=== PATIENT | female | born 1970 | race Caucasian/White ===

== ENCOUNTER 2017-05-04 11:38 | Emergency (ER) | payer BC ==
[~2017-05-04] VITALS: Ht 160 cm; Wt 59.1 kg
[2017-05-04 11:45] VITALS: TEMP 98.4
[2017-05-04] MEDS ORDERED: NEURONTIN300 MG/CAP PO (11:50)
[2017-05-04] MEDS ORDERED: CEPHALEXIN500 M1 PO (11:51)
[2017-05-04] MEDS ORDERED: XANAX .25M0.25 MG/TA PO (11:51)
[2017-05-04] MEDS ORDERED: DOXYCYCLINE HY100 MG PO (13:31)
[2017-05-04 13:44] VITALS: BP 119/59; PULSE 62
== END 2017-05-04 13:45 | disposition home or self-care (01) ==
LOC: COL.ER 11:38
DX: L27.1 Localized skin eruption due to drugs and medicaments taken internally (principal); T36.1X5A Adverse effect of cephalosporins and other beta-lactam antibiotics, initial encounter; L03.211 Cellulitis of face; G35 Multiple sclerosis
CPT/HCPCS: J1200; J2930; J7030

== ENCOUNTER → 2017-06-27 | Outpatient (CLI) | payer BC ==
[~2017-06-27] MED LIST: CEPHALEXIN500 M1 PO; DOXYCYCLINE HY100 MG PO; NEURONTIN300 MG/CAP PO; XANAX .25M0.25 MG/TA PO
== END ==
LOC: MC.RAD 06-24 15:20
DX: Z12.31 Encounter for screening mammogram for malignant neoplasm of breast (principal)

== ENCOUNTER 2017-10-21 15:52 | Emergency (ER) | payer BC ==
[~2017-10-21] VITALS: Ht 162.6 cm; Wt 61.4 kg
[2017-10-21 15:57] VITALS: BP 159/85; PULSE 73; TEMP 98.4
[2017-10-21] MEDS ORDERED: [UNRECOGNIZED DRUG - OTHER] SQ (16:02)
[2017-10-21] MEDS ORDERED: SINGULAIR 110 MG/TAB PO (16:28)
[2017-10-21] MEDS ORDERED: ZYRTEC 10MG10 MG PO (16:29)
[2017-10-21] MEDS ORDERED: DOXYCYCLINE 10100 MG PO (16:49)
== END 2017-10-21 16:56 | disposition home or self-care (01) ==
LOC: COL.ER 15:52
DX: R21 Rash and other nonspecific skin eruption (principal)

== ENCOUNTER → 2018-08-04 | Outpatient (CLI) | payer BC ==
[~2018-08-04] MED LIST changes: +DOXYCYCLINE 10100 MG PO; +SINGULAIR 110 MG/TAB PO; +ZYRTEC 10MG10 MG PO; +[UNRECOGNIZED DRUG - OTHER] SQ
== END ==
LOC: MC.RAD 15:48
DX: Z12.31 Encounter for screening mammogram for malignant neoplasm of breast (principal)

== ENCOUNTER → 2019-11-11 | Outpatient (CLI) | payer BC | LOC: MC.RAD 15:42 | DX: Z12.31 Encounter for screening mammogram for malignant neoplasm of breast (principal); N63.20 Unspecified lump in the left breast, unspecified quadrant ==

== ENCOUNTER → 2019-11-17 | Outpatient (CLI) | payer BC | LOC: MC.RAD 14:30 | DX: N60.12 Diffuse cystic mastopathy of left breast (principal) ==

== ENCOUNTER → 2020-05-17 | Outpatient (CLI) | payer BC | LOC: MC.RAD 10:26 | DX: N64.9 Disorder of breast, unspecified (principal) ==

== ENCOUNTER → 2020-12-12 | Outpatient (CLI) | payer BC | LOC: MC.RAD 16:00 | DX: Z12.31 Encounter for screening mammogram for malignant neoplasm of breast (principal) ==

== ENCOUNTER → 2020-12-19 | Outpatient (CLI) | payer BC | LOC: MC.RAD 14:00 | DX: N64.89 Other specified disorders of breast (principal) ==

== ENCOUNTER → 2022-04-09 | Outpatient (CLI) | payer BC | LOC: MC.RAD 15:37 | DX: Z12.31 Encounter for screening mammogram for malignant neoplasm of breast (principal); N64.9 Disorder of breast, unspecified ==

== ENCOUNTER → 2022-04-19 | Outpatient (CLI) | payer BC | LOC: MC.RAD 07:00 | DX: N60.02 Solitary cyst of left breast (principal) ==

== ENCOUNTER 2022-12-11 07:08 | Day surgery (SDC) | payer BC ==
[~2022-12-11] VITALS: Ht 160 cm; Wt 69.3 kg
[~2022-12-11 07:08] MED LIST changes: -ZYRTEC 10MG10 MG PO; +ZYRTEC-D 5 MG-11 TER PO
[2022-12-11 07:30] VITALS: BP 128/93; PULSE 77; TEMP 97.5
[2022-12-11] MEDS ORDERED: ESTRACE 1MG1 MG/TAB PO (07:33)
[2022-12-11] MEDS ORDERED: PROVERA5 MG PO (07:34)
[2022-12-11 08:35] VITALS: BP 129/83; PULSE 80; TEMP 97.5
--- NOTE | 2022-12-11 08:35 | NUR ---
0835 PATIENT RETURNS TO ROOM 2 VIA CART. PATIENT IS ALERT, BUT DROWSY. PATIENT WAS ASSISTED BACK TO RECLINER WITH ASSISTANCE FROM NURSES. RESPIRATIONS EVEN AND UNLABORED. PATIENT IS IN ROOM. VITAL SIGNS OBTAINED. PATIENT REQUESTED WATER. CALL LIGHT WITHIN REACH. 0840 WATER GIVEN TO PATIENT. NO DIFFICULTIES SWALLOWING. 0850 THIS NURSE REVIEWED DISCHARGE INSTRUCTIONS WITH PATIENT AND PATIENT . BOTH VERBALIZED UNDERSTANDING. 0855 THIS NURSE DC IV FROM RIGHT HAND WITH NO DIFFICULTIES. 0857 DOCTOR IN TO SPEAK WITH PATIENT AND PATIENT . 0900 PATIENT DRESSES SELF INDEPENDENTLY. 0905 PATIENT DC FROM DEPARTMENT VIA WHEELCHAIR.
[2022-12-11 08:50] VITALS: BP 117/83; PULSE 76
[2022-12-11 08:55] VITALS: BP 126/83; PULSE 71
== END 2022-12-11 09:05 | disposition home or self-care (01) ==
LOC: SDCO 07:08
DX: Z12.11 Encounter for screening for malignant neoplasm of colon (principal); K63.5 Polyp of colon; K57.30 Diverticulosis of large intestine without perforation or abscess without bleeding
CPT/HCPCS: J2704; J3010; J7120

== ENCOUNTER → 2023-08-13 | Outpatient (CLI) | payer BC ==
[~2023-08-13] MED LIST changes: +ESTRACE 1MG1 MG/TAB PO; +PROVERA5 MG PO
== END ==
LOC: MC.RAD 13:56
DX: N60.11 Diffuse cystic mastopathy of right breast (principal); N63.10 Unspecified lump in the right breast, unspecified quadrant